=== PATIENT | female | born 1960 | race Caucasian/White ===

== ENCOUNTER 2017-01-31 06:29 | Emergency (ER) | payer MEDICAID, OTHER ==
[~2017-01-31] VITALS: Ht 157.5 cm; Wt 82.0 kg
[2017-01-31] MEDS ORDERED: ALBUTEROL (0.083%) 2.5MG/3ML NEB HHN ONE (08:00)
[2017-01-31] MEDS ORDERED: HYDROCODONE/ACETAMINOPHEN 5/325MG TABLET PO ONE (08:00)
[2017-01-31 08:39] VITALS: BP 141/67
== END 2017-01-31 09:10 | disposition home or self-care (01) ==
LOC: ER 08:07
DX: M54.9 Dorsalgia, unspecified (principal); G89.29 Other chronic pain; F41.9 Anxiety disorder, unspecified; I10 Essential (primary) hypertension; F17.210 Nicotine dependence, cigarettes, uncomplicated; Z88.6 Allergy status to analgesic agent; Z85.89 Personal history of malignant neoplasm of other organs and systems; Z96.642 Presence of left artificial hip joint
CPT/HCPCS: 99283; J7611

== ENCOUNTER 2017-02-03 01:56 | Emergency (ER) | payer MEDICAID, OTHER ==
[~2017-02-03] VITALS: Ht 160 cm; Wt 78.0 kg
[2017-02-03] MEDS ORDERED: LORAZEPAM 2MG/ML CPJ IV ONE (03:45)
[2017-02-03 04:33] LABS: BASOPHILS % 0.5 % (0.0-2.0); EOSINOPHILS % 0.3 % (0.0-5.0); HEMATOCRIT. 41.1 % (36.0-48.0); HEMOGLOBIN. 14.3 g/dL (12.0-16.0); LYMPHOCYTES % 28.9 % (20.0-50.0); MEAN CORPUSCULAR HEMOGLOBIN 32.8 pg (28.0-32.0); MEAN CORPUSCULAR VOLUME 94.2 fL (81.0-99.0); MEAN PLATELET VOLUME 8.2 fl (7.4-10.4); MONOCYTES % 4.1 % (2.0-8.0); NEUTROPHILS % 66.2 % (40.0-76.0); PLATELET 144 x1000/uL (130-400); RED BLOOD CELL COUNT 4.37 mill/uL (4.2-5.4); RED CELL DISTRIBUTION WIDTH 13.6 % (11.6-14.6)
[2017-02-03 04:42] LABS: PROTHROMBIN TIME 10.8 sec (9.4-11.6)
[2017-02-03 04:45] LABS: CARBON DIOXIDE 28 mEq/L (21-32); CHLORIDE 101 mEq/L (98-107); ETHANOL BLOOD < 10 mg/dL
[2017-02-03 05:25] LABS: CARBAMAZEPINE < 0.5 ug/mL (4-12); PHENOBARBITAL < 2.1 ug/mL (15.0-40.0)
[2017-02-03] MEDS ORDERED: LORAZEPAM 0.5MG TABLET PO ONE (14:15)
[2017-02-03 16:11] LABS: CLARITY URINE CLEAR (CLEAR); COLOR URINE YELLOW (YELLOW); GLUCOSE URINE NEGATIVE (NEGATIVE); KETONES URINE TRACE (NEGATIVE); LEUKOCYTE ESTERASE URINE NEGATIVE (NEGATIVE); NITRITE URINE NEGATIVE (NEGATIVE); OCCULT BLOOD URINE NEGATIVE (NEGATIVE); PH URINE 6.5 (4.5-8.0); PROTEIN URINE NEGATIVE (NEGATIVE); SPECIFIC GRAVITY URINE 1.013 (1.005-1.030)
[2017-02-03 16:24] LABS: *AMPHETAMINES SCREEN URINE NEGATIVE (NEGATIVE); *BARBITURATES SCREEN URINE NEGATIVE (NEGATIVE); *BENZODIAZEPINES SCREEN URINE PRESUMTIVE POSITIVE (NEGATIVE); *COCAINE SCREEN URINE NEGATIVE (NEGATIVE); CANNABINOID URINE SCREEN NEGATIVE (NEGATIVE); METHADONE URINE SCREEN NEGATIVE (NEGATIVE); OPIATES URINE SCREEN NEGATIVE (NEGATIVE); PHENCYCLIDINE URINE SCREEN NEGATIVE (NEGATIVE)
[2017-02-03] MEDS: LORAZEPAM 0.5MG TABLET PO PRN (19:15)
[2017-02-03] MEDS ORDERED: NAPROXEN 375MG TABLET PO SCH (21:00)
[2017-02-04] MEDS: LORAZEPAM 0.5MG TABLET PO PRN (02:10)
[2017-02-04 02:17] VITALS: BP 122/76
== END 2017-02-04 02:40 ==
LOC: ER 01:59
DX: R45.851 Suicidal ideations (principal); R44.3 Hallucinations, unspecified; F17.200 Nicotine dependence, unspecified, uncomplicated; Z88.8 Allergy status to other drugs, medicaments and biological substances
CPT/HCPCS: 36415; 70450; 71010; 80053; 80156; 80165; 80184; 80185; 80305; 80307; 80329; 81003; 85025; 85610; 93005; 96374; 99285; G0482; J2060; Z7610

== ENCOUNTER 2017-08-08 11:48 | Emergency (ER) | payer MEDICAID, OTHER ==
[~2017-08-08] VITALS: Ht 162.6 cm; Wt 75.0 kg
[2017-08-08] MEDS ORDERED: ONDANSETRON HCL 4MG/2ML VIAL IV STA (14:35)
[2017-08-08] MEDS ORDERED: MORPHINE SULFATE 4 MG/ML CPJ (NOT FOR IM USE) IV STA (14:35)
[2017-08-08] MEDS ORDERED: ASPIRIN 81MG TABLET PO STA (14:35)
[2017-08-08] MEDS ORDERED: LIDOCAINE HCL 1% 20ML VIAL (Pyxis) INJ MC ONE (14:45)
[2017-08-08] MEDS ORDERED: BACITRACIN ZINC OINT UDPKT TOP ONE (14:45)
[2017-08-08 15:11] LABS: BASOPHILS % 0.8 % (0.0-2.0); EOSINOPHILS % 1.3 % (0.0-5.0); HEMATOCRIT. 37.7 % (36.0-48.0); HEMOGLOBIN. 13.2 g/dL (12.0-16.0); MEAN CORPUSCULAR HEMOGLOBIN 34.6 pg (28.0-32.0); MEAN CORPUSCULAR VOLUME 98.9 fL (81.0-99.0); MEAN PLATELET VOLUME 8.2 fl (7.4-10.4); MONOCYTES % 5.4 % (2.0-8.0); NEUTROPHILS % 26.5 % (40.0-76.0); PLATELET 87 x1000/uL (130-400); RED BLOOD CELL COUNT 3.81 mill/uL (4.2-5.4); RED CELL DISTRIBUTION WIDTH 15.1 % (11.6-14.6)
[2017-08-08 15:18] LABS: CHLORIDE 101 mEq/L (98-107); D-DIMER < 0.19 mg/L FEU (<0.50); INR 1.1; PARTIAL THROMBOPLASTIN TIME 23.4 sec (23.4-31.0); PROTHROMBIN TIME 11.7 sec (9.4-11.6)
[2017-08-08] MEDS ORDERED: SODIUM CHLORIDE 0.9% 1,000 ML IV ONE (18:23)
[2017-08-08] MEDS ORDERED: LORAZEPAM 2MG/ML CPJ IV ONE (18:30)
[2017-08-08] MEDS ORDERED: IBUPROFEN 400MG TABLET PO ONE (20:00)
[2017-08-09] MEDS ORDERED: LORAZEPAM 2MG/ML CPJ IV ONE (00:15)
[2017-08-09 11:53] VITALS: BP 107/74
== END 2017-08-09 12:09 | disposition home or self-care (01) ==
LOC: ER 11:48
DX: L60.0 Ingrowing nail (principal); I10 Essential (primary) hypertension; M10.9 Gout, unspecified; Z96.649 Presence of unspecified artificial hip joint; Z88.8 Allergy status to other drugs, medicaments and biological substances
CPT/HCPCS: 11730; 36415; 80053; 83605; 83690; 83880; 84484; 85025; 85379; 85610; 85730; 87040; 93005; 96361; 96374; 96376; 99285; J2060; J3490; J7030; Z7610

== ENCOUNTER 2018-06-10 15:38 | Emergency (ER) | payer MEDICAID ==
[~2018-06-10] VITALS: Ht 162.6 cm; Wt 70.0 kg
[2018-06-10] MEDS ORDERED: KETOROLAC 60MG/2ML VIAL IM ONE (18:45)
[2018-06-10 19:37] VITALS: BP 104/86
== END 2018-06-10 19:42 | disposition home or self-care (01) ==
LOC: ER 15:38
DX: G89.29 Other chronic pain (principal); M54.5 Low back pain; E66.9 Obesity, unspecified; I10 Essential (primary) hypertension; Z88.1 Allergy status to other antibiotic agents; Z96.649 Presence of unspecified artificial hip joint
CPT/HCPCS: 96372; 99283; J1885

== ENCOUNTER 2018-06-10 23:20 | Emergency (ER) | payer MEDICAID ==
[~2018-06-10] VITALS: Ht 157.5 cm; Wt 70.3 kg
[2018-06-11] MEDS ORDERED: SODIUM CHLORIDE 0.9% 1,000 ML IV ONE (03:00)
[2018-06-11] MEDS ORDERED: ONDANSETRON HCL 4MG/2ML INJ IV STA (03:00)
[2018-06-11 03:26] LABS: BASOPHILS % 0.5 % (0.0-2.0); EOSINOPHILS % 1.4 % (0.0-5.0); HEMATOCRIT. 40.9 % (36.0-48.0); LYMPHOCYTES % 39.6 % (20.0-50.0); MEAN CORPUSCULAR VOLUME 110.8 fL (81.0-99.0); MEAN PLATELET VOLUME 8.5 fl (7.4-10.4); MONOCYTES % 7.5 % (2.0-8.0); PLATELET 139 x1000/uL (130-400); RED BLOOD CELL COUNT 3.69 mill/uL (4.2-5.4); RED CELL DISTRIBUTION WIDTH 17.5 % (11.6-14.6)
[2018-06-11 03:32] LABS: CHLORIDE 99 mEq/L (98-107)
[2018-06-11 05:12] LABS: CLARITY URINE TURBID (CLEAR); COLOR URINE ORANGE (YELLOW); KETONES URINE NEGATIVE (NEGATIVE); LEUKOCYTE ESTERASE URINE 2+ (NEGATIVE); NITRITE URINE POSITIVE (NEGATIVE); OCCULT BLOOD URINE NEGATIVE (NEGATIVE); PROTEIN URINE 1+ (NEGATIVE); SPECIFIC GRAVITY URINE 1.038 (1.005-1.030)
[2018-06-11] MEDS ORDERED: ONDANSETRON 4MG ODT PO ONE (05:30)
[2018-06-11] MEDS ORDERED: POTASSIUM CHLORIDE 20MEQ TABLET SR PO ONE (06:00)
[2018-06-11 06:26] VITALS: BP 127/78
[2018-06-11 07:12] LABS: PLATELET ESTIMATE NORMAL
== END 2018-06-11 06:45 | disposition home or self-care (01) ==
LOC: ER 23:20
DX: K52.9 Noninfective gastroenteritis and colitis, unspecified (principal); K40.90 Unilateral inguinal hernia, without obstruction or gangrene, not specified as recurrent; K76.0 Fatty (change of) liver, not elsewhere classified; Z88.8 Allergy status to other drugs, medicaments and biological substances
CPT/HCPCS: 36415; 74176; 80053; 81003; 83690; 85025; 96361; 96374; 99284; J2405; J7030; Q0162; J7040

== ENCOUNTER 2018-06-11 06:51 | Emergency (ER) | payer MEDICAID ==
[~2018-06-11] VITALS: Ht 157.5 cm; Wt 70.3 kg
[2018-06-11 07:07] VITALS: BP 101/79
== END 2018-06-11 12:55 | disposition left against medical advice (07) ==
LOC: ER 08:31
DX: Z53.21 Procedure and treatment not carried out due to patient leaving prior to being seen by health care provider (principal)

== ENCOUNTER 2018-07-30 18:59 | Emergency (ER) | payer MEDICAID ==
[~2018-07-30] VITALS: Ht 157.5 cm; Wt 84.0 kg
[2018-07-30] MEDS ORDERED: TRAMADOL 50MG TABLET PO ONE (22:30)
[2018-07-30 22:58] VITALS: BP 120/68
== END 2018-07-30 22:56 | disposition home or self-care (01) ==
LOC: ER 18:59
DX: L03.031 Cellulitis of right toe (principal); R03.0 Elevated blood-pressure reading, without diagnosis of hypertension; F10.21 Alcohol dependence, in remission; Z87.891 Personal history of nicotine dependence
CPT/HCPCS: 99283